=== PATIENT | male | born 1960 | race African-American/Black ===

== ENCOUNTER 2018-10-13 18:20 | Emergency (ER) | payer MEDICAID ==
[~2018-10-13] VITALS: Ht 162.6 cm; Wt 90.0 kg
[2018-10-13 18:27] VITALS: BP 124/84
--- NOTE | 2018-10-13 19:01 | NUR ---
bib remsa pt reports si for depression will jump in front of a car colothing removed and secured
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
[2018-10-13 19:26] LABS: BASOPHILS # (AUTO) 0.06 x10^3/uL (0-0.1); BASOPHILS % (AUTO) 1 % (0-1); EOSINOPHILS # (AUTO) 0.31 x10^3/uL (0-0.4); EOSINOPHILS % (AUTO) 4 % (1-7); LYMPHOCYTES # (AUTO) 2.14 x10^3/uL (1-3.4); LYMPHOCYTES % (AUTO) 27 % (22-44); MD NO; MEAN CORPUSCULAR HEMOGLOBIN 27.6 pg (27.5-34.5); MEAN CORPUSCULAR VOLUME 83.6 fL (81-97); MEAN PLATELET VOLUME 7.7 fL (7.4-10.4); MONOCYTES # (AUTO) 0.83 x10^3/uL (0.2-0.8); MONOCYTES % (AUTO) 11 % (2-9); NEUTROPHILS # (AUTO) 4.55 x10^3/uL (1.8-6.8); NEUTROPHILS % (AUTO) 58 % (42-75); PLATELET COUNT 201 x10^3/uL (130-400); RED BLOOD COUNT 5.31 x10^6/uL (4.38-5.82); RED CELL DISTRIBUTION WIDTH 14.6 % (9.4-14.8)
[2018-10-13 19:28] LABS: AMPHETAMINE SCREEN, URINE Positive (Negative); BARBITURATE SCREEN, URINE Negative (Negative); BENZODIAZEPINE SCREEN, URINE Negative (Negative); CANNABINOID SCREEN, URINE Negative (Negative); COCAINE SCREEN, URINE Negative (Negative); METHADONE SCREEN, URINE Negative (Negative); OPIATE SCREEN, URINE Negative (Negative)
[2018-10-13 19:38] LABS: ALBUMIN 3.5 g/dL (3.4-5.0); ANION GAP 6 mmol/L (5-15); CALCIUM 8.5 mg/dL (8.5-10.1); CHLORIDE 110 mmol/L (98-107)
[2018-10-13 19:46] LABS: ALANINE AMINOTRANSFERASE 22 U/L (12-78); ALKALINE PHOSPHATASE 106 U/L (45-117); BILIRUBIN,TOTAL 0.3 mg/dL (0.2-1.0); CREATININE 1.42 mg/dL (0.7-1.3); SALICYLATE LEVEL < 1.7 mg/dL (2.8-20.0); TOTAL PROTEIN 7.3 g/dL (6.4-8.2)
[2018-10-13 19:47] LABS: ACETAMINOPHEN < 2 mcg/mL (10-30)
--- NOTE | 2018-10-13 20:36 | NUR ---
THROUGHPUT RN: MESSAGE LEFT FOR [facility] PER PT'S INSURANCE.
--- NOTE | 2018-10-13 20:36 | NUR ---
pt resting on gurney, rr even and unlabored. sitter outside of room for safety. room secured with belongings locked up. pt is calm and cooperative with treatment
--- NOTE | 2018-10-13 20:53 | NUR ---
THROUGHPUT: GARRICK FROM [facility] RETURNED PAGE FOR CONSULT. INFROMATION PROVIDED REQUESTED.
--- NOTE | 2018-10-13 22:04 | NUR ---
psych archeology professor at bedside
--- NOTE | 2018-10-13 22:42 | NUR ---
based on evaluation from [facility] psych evaler and Dr. Landeros, pt will be discharged home with resources to follow up outpatient. pt denies si and hi. pt given back his belongings from [facility]
== END 2018-10-13 22:58 | disposition home or self-care (01) ==
LOC: EDBD 18:20 → ED 20:12
DX: F32.9 Major depressive disorder, single episode, unspecified (principal); Z72.9 Problem related to lifestyle, unspecified; F15.10 Other stimulant abuse, uncomplicated; I10 Essential (primary) hypertension; Z86.718 Personal history of other venous thrombosis and embolism; I25.10 Atherosclerotic heart disease of native coronary artery without angina pectoris
CPT/HCPCS: 36415; 80053; 80307; 80329; 85025; 99284; G0480

== ENCOUNTER 2018-11-05 15:40 | Emergency (ER) | payer MEDICAID ==
[~2018-11-05] VITALS: Ht 162.6 cm; Wt 90.3 kg
--- NOTE | 2018-11-05 16:35 | NUR ---
PT WHEELED BACK FROM LOBBY TO ROOM AT THIS TIME. ASSUMED CARE OF PT.
--- NOTE | 2018-11-05 17:00 | NUR ---
PT UP TO RESTROOM. STEADY UPON AMBULATION TO RESTROOM. PT AO X 4. SKIN WARM AND DRY. 1+ SWELLING NOTED TO RIGHT ANKLE. NAD NOTED. RESP EVEN AND UNLABORED. CALL LIGHT WITHIN REACH. WILL CONT TO MONITOR PT.
[2018-11-05 17:34] LABS: BASOPHILS # (AUTO) 0.08 x10^3/uL (0-0.1); BASOPHILS % (AUTO) 1 % (0-1); EOSINOPHILS # (AUTO) 0.06 x10^3/uL (0-0.4); EOSINOPHILS % (AUTO) 1 % (1-7); LYMPHOCYTES # (AUTO) 1.88 x10^3/uL (1-3.4); LYMPHOCYTES % (AUTO) 17 % (22-44); MD NO; MEAN CORPUSCULAR HEMOGLOBIN 27.1 pg (27.5-34.5); MEAN CORPUSCULAR VOLUME 82.3 fL (81-97); MEAN PLATELET VOLUME 7.7 fL (7.4-10.4); MONOCYTES # (AUTO) 1.31 x10^3/uL (0.2-0.8); MONOCYTES % (AUTO) 12 % (2-9); NEUTROPHILS # (AUTO) 7.98 x10^3/uL (1.8-6.8); NEUTROPHILS % (AUTO) 71 % (42-75); PLATELET COUNT 271 x10^3/uL (130-400); RED CELL DISTRIBUTION WIDTH 14.6 % (9.4-14.8)
[2018-11-05 17:45] LABS: ANION GAP 10 mmol/L (5-15); CALCIUM 8.3 mg/dL (8.5-10.1); CHLORIDE 106 mmol/L (98-107); CREATININE 1.38 mg/dL (0.7-1.3)
--- NOTE | 2018-11-05 18:06 | NUR ---
PT PROVIDED WITH WATER AND MEAL TRAY ORDERED WITH OKAY BY RUBEN ATKINS. PT SEEN UP AND WALKING AROUND ROOM ALTHOUGH PT STATES "I CAN'T WALK". PT AO X 4. RN DISCUSSED AT LENGTH POC WITH PT THAT WE ARE WAITING FOR LAB/IMAGING RESULTS. PT VERBALIZES UNDERSTANDING. PT RESTING ON GURNEY IN QUIET, DARK ROOM. PT ON CONT PB AND O2 MONITORS. CALL LIGHT WITHIN REACH. WILL CONT TO MONITOR PT.
[2018-11-05 18:08] VITALS: BP 137/72
[2018-11-05 18:08] LABS: INTERNATIONAL NORMALIZED RATIO 3.11 (0.93-1.1)
[2018-11-05 18:11] LABS: PROTHROMBIN TIME 31.3 Seconds (9.6-11.5)
--- NOTE | 2018-11-05 18:59 | NUR ---
REPORT TO MARY SEE WHO ASSUMED CARE OF PT.
--- NOTE | 2018-11-05 19:33 | NUR ---
Pt given discharge information. Pt wheeled to the bathroom. Pt to be wheeled back to the room to change into clothing and then pt will be taken out to discharge area.
--- NOTE | 2018-11-05 19:44 | NUR ---
Pt wheeled to discharge area by this RN. Pt made a comment to this RN, "they didn't even think I deserved a pain pill or ice pack I guess." Then pt stated, "that's ok, I'm gonna have someone call 911 and go get a 2nd opinion."
== END 2018-11-05 19:47 | disposition home or self-care (01) ==
LOC: ED 16:50
DX: M25.571 Pain in right ankle and joints of right foot (principal); F17.200 Nicotine dependence, unspecified, uncomplicated; I10 Essential (primary) hypertension
CPT/HCPCS: 36415; 80048; 82040; 85025; 85610; 85730; 99284